=== PATIENT | male | born 1995 | race American Indian/Alaskan Native ===

== ENCOUNTER 2017-04-13 05:24 | Emergency (ER) | payer SELFPAY ==
[2017-04-13 06:00] VITALS: BP 132/82
[2017-04-13 07:07] LABS: Amorphous Crystals,Urine 1+; Bacteria,Urine 1+ /HPF (Negative); Bilirubin,Urine NEG (Negative); Blood,Urine NEG (Negative); Color,Urine Yellow (Yellow); Mucus,Urine FEW /HPF; Protein,Urine <15 mg/dL mg/dL (Negative); Urobilinogen,Urine < 2.0 mg/dL (<2.0)
--- NOTE | 2017-04-13 07:58 | Emergency Department Report ---
ED Male HPI - General Chief complaint: Urogenital-Male Stated complaint: PENILE D/C Time Seen by Provider: 04/13/17 07:56 Source: patient Mode of arrival: Ambulatory Limitations: No Limitations - History of Present Illness Initial comments: 21 y o male presents to ED complaining of penile discharge 3 days. Patient states that he had intercourse unprotected with a partner on Monday. Patient states penile Discharge is whitish creamish in nature. Patient states that he had dysuria Monday evening and Monday morning. Patient denies any testicle swelling, lesions, penile pain or testicular pain, fever, hematuria, nausea vomiting or any other symptoms MD Complaint: penile discharge -: days(s) (3) Quality: burning (with urination, now resolved) denies: swelling, mass, rash, urinary retention, blood in urine, fever, nausea/ vomiting - Related Data Previous Rx's Medication Instructions Recorded Last Taken Type Ciprofloxacin HCl [Ciprofloxacin 500 mg PO Q12HR #10 tab 04/13/17 Unknown Rx TAB] Allergies Allergy/AdvReac Type Severity Reaction Status Date / Time No Known Allergies Allergy Unverified 04/13/17 06:00 ED Review of Systems ROS: Stated complaint: PENILE D/C Other details as noted in HPI Constitutional: denies: chills, fever Eyes: denies: eye pain, eye discharge, vision change Respiratory: denies: cough, shortness of breath, wheezing Cardiovascular: denies: chest pain, palpitations Endocrine: no symptoms reported Gastrointestinal: denies: abdominal pain, nausea, vomiting, diarrhea Genitourinary: dysuria, discharge. denies: urgency, frequency, hematuria, testicular pain, testicular mass Musculoskeletal: denies: back pain, joint swelling, arthralgia Skin: denies: rash, lesions ED Past Medical Hx - Past Medical History Previous Medical History?: No - Surgical History Past Surgical History?: No - Social History Smoking Status: Never Smoker Substance Use Type: Marijuana - Medications Home Medications: Home Medications Medication Instructions Recorded Confirmed Last Taken Type Ciprofloxacin HCl [Ciprofloxacin 500 mg PO Q12HR #10 tab 04/13/17 Unknown Rx TAB] ED Physical Exam - General Limitations: No Limitations General appearance: alert, in no apparent distress - Head Head exam: Present: atraumatic, normocephalic - Eye Eye exam: Present: normal appearance - ENT ENT exam: Present: mucous membranes moist - Neck Neck exam: Present: normal inspection - Respiratory Respiratory exam: Present: normal lung sounds bilaterally. Absent: respiratory distress - Cardiovascular Cardiovascular Exam: Present: regular rate, normal rhythm. Absent: systolic murmur, diastolic murmur, rubs, gallop - GI/Abdominal GI/Abdominal exam: Present: soft, normal bowel sounds - Rectal Rectal exam: Present: deferred - exam: Present: normal inspection. Absent: testicular tenderness, urethral discharge, scrotal swelling External exam: Present: normal external exam. Absent: erythema, swelling, lesions, lacerations, bleeding - Extremities Exam Extremities exam: Present: normal inspection - Back Exam Back exam: Present: normal inspection - Neurological Exam Neurological exam: Present: alert, oriented X3 - Psychiatric Psychiatric exam: Present: normal affect, normal mood - Skin Skin exam: Present: warm, dry, intact, normal color. Absent: rash ED Course Vital Signs 04/13/17 05:56 Temperature 98.1 F Pulse Rate 66 Respiratory 18 Rate Blood Pressure 132/82 O2 Sat by Pulse 98 Oximetry ED Medical Decision Making - Medical Decision Making 21-year-old male presents with STD exposure. ED course: urinalysis and gonorrhea and Chlamydia cultures obtained and sent. Urinalysis positive for leukorrhea, bacteria Patient received 250 mg of Rocephin, azithromycin 1 g, Flagyl 2 g. Discussed with patient possible STD due to exposure. Discussed with patient findings and treatment Discussed prophylaxis treatment patient is to abstain from sex 7-10 days as treatment. Discussed with patient partner knowledge and treatment. Discussed the follow-up with the health department for further STD testing. Patient's alert and oriented times 3. Vital signs are normal, patient is in no acute discharge. Patient will be discharged home with instructions. He states to understanding instructions. Critical care attestation.: If time is entered above; I have spent that time in minutes in the direct care of this critically ill patient, excluding procedure time. ED Disposition Clinical Impression: Possible exposure to STD UTI (urinary tract infection) Qualifiers: Urinary tract infection type: acute cystitis Hematuria presence: with hematuria Qualified Code(s): N30.01 - Acute cystitis with hematuria Disposition: TO HOME OR SELFCARE Is pt being admited?: No Does the pt Need Aspirin: No Condition: Stable Instructions: Safe Sex (ED), Sexually Transmitted Diseases (ED), Trichomoniasis (ED) Additional Instructions: Make sure to follow up with the primary care physician as discussed. Take all your medications as you've been prescribed. follow up with Health department for further STD screening. If you have any worsening symptoms or develop new symptoms please return to ED immediately. Prescriptions: Ciprofloxacin HCl [Ciprofloxacin TAB] 500 mg PO Q12HR #10 tab Referrals: COCO WEAVER MD [Primary Care Provider] - 3-5 Days [facility] [Outside] - 3-5 Days [facility] [Outside] - 3-5 Days Forms: Accompanied Note, Work/School Release Form(ED) Time of Disposition: 08:30
[2017-04-13] MEDS ORDERED: FLAGYL PO ONE (08:10)
[2017-04-13] MEDS ORDERED: ZITHROMAX PO ONE ×2 (08:10→08:51)
[2017-04-13] MEDS ORDERED: XYLOCAINE 1% MPF 5 mL INFILTRATI ONE (08:10)
[2017-04-13] MEDS ORDERED: ROCEPHIN IM ONE (08:10)
[2017-04-13] MEDS ORDERED: ZITHROMAX ONE (08:33)
== END 2017-04-13 09:10 | disposition home or self-care (01) ==
LOC: ED 05:24
DX: N30.01 Acute cystitis with hematuria (principal); F12.10 Cannabis abuse, uncomplicated
CPT/HCPCS: 81001; 87591; 96372; 99283; J0696